=== PATIENT | male | born 1960 | race Caucasian/White ===

== ENCOUNTER 2021-07-01 06:36 | Observation (INO) ==
[~2021-07-01 06:36] MED LIST: Buffered Lidocaine 1% SYRIN 1 ml INTRADERM ONE; Lactated Ringers 1000 ml BAG 1,000 ML IV SCH; Naloxone 0.4 mg VIAL 0.4 mg/ml 1 ml VIAL IV PRN; Ondansetron 4 mg VIAL 2 MG/ML 2 ml VIAL IV PRN; fentaNYL 100 mcg/2 ml 50 MCG/ML VIAL IV PRN
[2021-07-01] MEDS ORDERED: ceFAZolin 2 GM in NS PREMIX 2 GM/100 ML BAG IVPB ONE (07:09)
[2021-07-01] MEDS ORDERED: Lidocaine 2% PF 5 ML VIAL ONE (07:13)
[2021-07-01] MEDS ORDERED: ceFAZolin VIAL 1 GM in NS 0.9% 50 ML 50 ML IVPB ONE (07:15)
[2021-07-01] MEDS ORDERED: Phenylephrine IV 10 MG/ML 1 ml VIAL ONE (07:20)
[2021-07-01] MEDS ORDERED: ROPIVACAINE 5 MG/ML 30 ML BTL (0.5%) ONE ×2 (07:25→07:35)
[2021-07-01] MEDS ORDERED: Midazolam 2 mg/2 ml VIAL 1 mg/ml 2 ml VIAL (2 mg) ONE (07:36)
[2021-07-01] MEDS ORDERED: Dexamethasone IV 4 MG/ML VIAL 1 ml VIAL ONE ×2 (07:36→09:26)
[2021-07-01] MEDS ORDERED: Lidocaine 1% MPF 5 ML VIAL ONE (08:11)
[2021-07-01] MEDS ORDERED: fentaNYL 100 mcg/2 ml 50 MCG/ML VIAL ONE ×3 (09:01→10:46)
[2021-07-01] MEDS ORDERED: Ondansetron 4 mg VIAL 2 MG/ML 2 ml VIAL ONE (09:26)
[2021-07-01] MEDS ORDERED: EPHEDrine (Pressors) 50 MG/ML VIAL ONE (09:26)
[2021-07-01] MEDS ORDERED: Glycopyrrolate IV 0.2 MG/ML 1 ML VIAL ONE (10:23)
[2021-07-01] MEDS ORDERED: Morphine 2 MG/ML SYRINGE IV PRN (10:35)
[2021-07-01] MEDS ORDERED: Ondansetron 4 mg VIAL 2 MG/ML 2 ml VIAL IV PRN (10:35)
[2021-07-01] MEDS ORDERED: Magnesium Hydroxide LIQ 30 ML UDC PO PRN (10:35)
[2021-07-01] MEDS ORDERED: Ondansetron ODT 4 mg TAB 4 MG TAB PO PRN (10:35)
[2021-07-01] MEDS ORDERED: Lactulose 30 ml UDC PO PRN (10:35)
[2021-07-01] MEDS ORDERED: Albuterol HFA INHALER 8 gm MDI INH PRN (10:40)
[2021-07-01] MEDS ORDERED: Propofol 10 MG/ML 20 ML BTL ONE (10:42)
[2021-07-01] MEDS: Lactated Ringers 1000 ml BAG 1,000 ML IV SCH (13:39)
[2021-07-01] MEDS ORDERED: HYDROmorphone 0.5 MG/0.5 ML SYRINGE ONE (13:52)
[2021-07-01] MEDS ORDERED: hydrALAZINE 20 mg/ml 1 ML Vial IV ONE (13:52)
[2021-07-01] MEDS: Clindamycin 600 MG/D5W BAG 600 MG/50 ML BAG IV SCH (17:38)
[2021-07-01] MEDS: Magnesium Hydroxide LIQ 30 ML UDC PO SCH (21:54)
[2021-07-02] MEDS: Lactated Ringers 1000 ml BAG 1,000 ML IV SCH (00:30)
[2021-07-02] MEDS: Clindamycin 600 MG/D5W BAG 600 MG/50 ML BAG IV SCH ×2 (01:03→07:39)
[2021-07-02] MEDS: Magnesium Hydroxide LIQ 30 ML UDC PO SCH (07:45)
[2021-07-02 08:03] LABS: Hematocrit 33 % (42-52); Hemoglobin 10.9 g/dL (14.0-18.0); Mean Platelet Volume 10.1 fL (7.4-10.4); Platelet Count 172 10^3/uL (150-450)
[2021-07-02 08:51] LABS: Calcium 9.1 mg/dL (8.6-10.3); Digoxin 0.3 ng/ml (0.8-2.0); Potassium 4.3 mmol/L (3.5-5.0); eGFR CKD-EPI 93.5 (>60)
[2021-07-02] MEDS ORDERED: Vitamin THERAPEUTIC TAB PO SCH (09:00)
[2021-07-02 11:31] VITALS: BP 110/59
[2021-07-12] MEDS ORDERED: Evolocumab (NF) 140 MG/ML SYRINGE SUBCUT SCH (09:00)
== END 2021-07-02 14:10 | disposition home or self-care (01) ==
LOC: SSU 06:36 → OR 06:36
PROVIDERS: ADMIT Orthopaedic Surgery Adult Reconstructive Orthopaedic Surgery; ATTEND Orthopaedic Surgery Adult Reconstructive Orthopaedic Surgery

== ENCOUNTER 2021-11-21 09:25 | Observation (INO) ==
[~2021-11-21 09:25] MED LIST changes: +Dexamethasone IV 4 MG/ML VIAL 1 ml VIAL ONE; +Lidocaine 2% PF 5 ML VIAL ONE; +Midazolam 2 mg/2 ml VIAL 1 mg/ml 2 ml VIAL (2 mg) ONE; -Naloxone 0.4 mg VIAL 0.4 mg/ml 1 ml VIAL IV PRN; -Ondansetron 4 mg VIAL 2 MG/ML 2 ml VIAL IV PRN; +Ondansetron 4 mg VIAL 2 MG/ML 2 ml VIAL ONE; +Phenylephrine IV 10 MG/ML 1 ml VIAL ONE; +Propofol 10 MG/ML 20 ML BTL ONE; +Rocuronium 50 mg VIAL 10 mg/ml 5 ml VIAL (50 mg) ONE; -fentaNYL 100 mcg/2 ml 50 MCG/ML VIAL IV PRN; +fentaNYL 100 mcg/2 ml 50 MCG/ML VIAL ONE
[2021-11-21] MEDS ORDERED: ceFAZolin 2 GM PREMIX 2 GM/50 ML BAG ONE (09:34)
[2021-11-21] MEDS ORDERED: Lidocaine 1% w EPI 1:200,000 SDV 30 ML VIAL ONE (09:42)
[2021-11-21] MEDS ORDERED: ceFAZolin VIAL VIAL ONE (09:42)
[2021-11-21] MEDS ORDERED: Lidocaine 1% MPF 5 ML VIAL ONE (09:53)
[2021-11-21] MEDS ORDERED: ROPIVACAINE 5 MG/ML 30 ML BTL (0.5%) ONE (09:53)
[2021-11-21] MEDS ORDERED: ceFAZolin 1 GM in Dextrose 1 GM/50 ML BAG ONE (10:05)
[2021-11-21] MEDS ORDERED: Rocuronium 50 mg VIAL 10 mg/ml 5 ml VIAL (50 mg) ONE (12:14)
[2021-11-21] MEDS ORDERED: HYDROmorphone 1 MG/1 ML SYRINGE IV PRN (12:16)
[2021-11-21] MEDS ORDERED: Ondansetron 4 mg VIAL 2 MG/ML 2 ml VIAL IV PRN ×2 (12:16→14:52)
[2021-11-21] MEDS ORDERED: Acetaminophen IV 1 GM/100ML 1,000 MG/100 ML BAG IV PRN (12:16)
[2021-11-21] MEDS ORDERED: Naloxone 0.4 mg VIAL 0.4 mg/ml 1 ml VIAL IV PRN (12:16)
[2021-11-21] MEDS ORDERED: fentaNYL 100 mcg/2 ml 50 MCG/ML VIAL IV PRN (12:16)
[2021-11-21] MEDS ORDERED: Lactulose 30 ml UDC PO PRN (14:52)
[2021-11-21] MEDS ORDERED: Magnesium Hydroxide LIQ 30 ML UDC PO PRN (14:52)
[2021-11-21] MEDS ORDERED: Morphine 2 MG/ML SYRINGE IV PRN (14:52)
[2021-11-21] MEDS ORDERED: Ondansetron ODT 4 mg TAB 4 MG TAB PO PRN (14:52)
[2021-11-21] MEDS: Lactated Ringers 1000 ml BAG 1,000 ML IV SCH (16:44)
[2021-11-21] MEDS: ceFAZolin 1 GM ADVAN 1 GM in NS 0.9% 50 ML 50 ML IVPB SCH (19:56)
[2021-11-21] MEDS: Magnesium Hydroxide LIQ 30 ML UDC PO SCH (21:17)
[2021-11-22] MEDS: ceFAZolin 1 GM ADVAN 1 GM in NS 0.9% 50 ML 50 ML IVPB SCH ×2 (03:11→10:30)
[2021-11-22] MEDS: Lactated Ringers 1000 ml BAG 1,000 ML IV SCH (03:11)
[2021-11-22 05:33] LABS: Hematocrit 34 % (42-52); Hemoglobin 10.8 g/dL (14.0-18.0); Mean Platelet Volume 9.5 fL (7.4-10.4); Platelet Count 193 10^3/uL (150-450)
[2021-11-22 05:52] LABS: Calcium 8.5 mg/dL (8.6-10.3); Potassium 4.9 mmol/L (3.5-5.0); eGFR CKD-EPI 89.9 (>60)
[2021-11-22] MEDS ORDERED: Vitamin THERAPEUTIC TAB PO SCH (09:00)
[2021-11-22] MEDS: Magnesium Hydroxide LIQ 30 ML UDC PO SCH (09:30)
[2021-11-22 11:07] VITALS: BP 121/72
== END 2021-11-22 12:55 | disposition home or self-care (01) ==
LOC: OR 09:25 → SSU 09:25
PROVIDERS: ADMIT Orthopaedic Surgery Sports Medicine; ATTEND Orthopaedic Surgery Sports Medicine